=== PATIENT | female | born 1995 | race American Indian/Alaskan Native ===

== ENCOUNTER 2021-11-30 12:09 | Outpatient (CLI) | payer SELFPAY ==
[2021-11-30 12:27] VITALS: BP 119/82
[2021-11-30] MEDS ORDERED: ONDANSETRON 4 MG/2 ML INJ IM SCH (12:43)
[2021-11-30] MEDS ORDERED: LACTATED RINGERS 1,000 ML IV SCH (12:45)
[2021-11-30] MEDS ORDERED: ONDANSETRON 4 MG/2 ML INJ IV NR (13:54)
[2021-11-30] MEDS ORDERED: LACTATED RINGERS 1,000 ML IV ONE (14:00)
[2021-11-30 14:09] LABS: Bilirubin,Urine NEG (Negative); Blood,Urine SM (Negative); Color,Urine Amber (Yellow)
[2021-11-30 14:10] LABS: RBC,Urine < 1.0 /HPF (0.0-6.0); WBC,Urine < 1.0 /HPF (0.0-6.0)
[2021-11-30 14:21] LABS: Amphetamine Screen,Urine PRESUMPTIVE NEGATIVE; Benzodiazepines Screen,Urine PRESUMPTIVE NEGATIVE; Cannabinoid Screen,Urine PRESUMPTIVE POSITIVE; Cocaine Screen,Urine PRESUMPTIVE POSITIVE; Methadone Screen,Urine PRESUMPTIVE NEGATIVE; Opiate Screen,Urine PRESUMPTIVE NEGATIVE
[2021-11-30] MEDS ORDERED: GENTAMICIN/NS 80 MG/100 ML 100 ML IV SCH (14:50)
== END 2021-11-30 15:50 | disposition home or self-care (01) ==
LOC: TRG 12:09 → APU 12:10 → TRG 15:50
PROVIDERS: ATTEND Obstetrics & Gynecology
DX: O62.9 Abnormality of forces of labor, unspecified (principal); O21.2 Late vomiting of pregnancy; O99.333 Smoking (tobacco) complicating pregnancy, third trimester; F17.200 Nicotine dependence, unspecified, uncomplicated; Z3A.38 38 weeks gestation of pregnancy
CPT/HCPCS: 80307; 81001; 96361; 96365; 96366; 96368; J1580; J2405; J7120; 96360; 96374